=== PATIENT | male | born 1945 | race Two or more races ===

== ENCOUNTER 2020-09-29 12:13 | Emergency (ER) | payer OTHER ==
[~2020-09-29] VITALS: Ht 172.7 cm; Wt 108.9 kg
[2020-09-29 14:03] VITALS: BP 152/90
== END 2020-09-29 13:11 | disposition short-term general hospital (02) ==
LOC: ER 12:13
DX: I60.9 Nontraumatic subarachnoid hemorrhage, unspecified (principal)
CPT/HCPCS: 70450; 99291